=== PATIENT | female | born 1965 | race Caucasian/White ===

== ENCOUNTER 2017-01-27 11:09 | Inpatient (IN) | payer OTHER ==
[~2017-01-27] VITALS: Ht 167.6 cm; Wt 75.0 kg
[~2017-01-27 11:09] MED LIST: ALPR.5 PO; BUTACAP6; HYDR-3516 PO; TRAM50TA PO
[2017-01-27 11:10] VITALS: BP 126/81; PULSE 106; RESP 20; TEMP 99.8; O2SAT 96
--- NOTE | 2017-01-27 11:18 | PD ---
Physical Exam Time Seen by Provider: 11:17 Narrative 51 y/o female here c/o of nausea, h/a. Hx of meningitis in the past and she is concerned about a reoccurrence. Here with rash, fever currently but the h/a and nausea resolved. Vital signs reviewed. Seen at triage desk. Awaiting bed placement. Data Data Last Documented VS Vital Signs Date Time Temp Pulse Resp B/P (MAP) Pulse Ox O2 Delivery O2 Flow Rate FiO2 01/27/17 11:10 99.8 106 20 126/81 (96) 96 Room Air [facility] Medical Record Reviewed: Yes Supervised Visit with DANIELA: Melo Bundy Jan 27, 2017 11:18
[2017-01-27 11:38] VITALS: BP 122/78; PULSE 101; RESP 17; TEMP 99.5; O2SAT 98
[2017-01-27] MEDS ORDERED: cefTRIAXone INJ 2,000 MG in SODIUM CHLORIDE 0.9% INJ 100 ML IV STA (11:43)
[2017-01-27] MEDS ORDERED: ACETAMINOPHEN 325 MG TAB PO ONE (11:45)
--- NOTE | 2017-01-27 11:54 | PD ---
HPI . Headache and fever Chief Complaint: Fever Time Seen by Provider: 11:32 Travel History International Travel<30 days: No Contact w/Intl Traveler<30days: No Traveled to known affect area: No History of Present Illness HPI Patient presents with a chief complaint of headache and fever. Onset was 3 days ago. She is unable to tell me exactly what her temperature has been running at home. She has not actually checked it. She further reports a stiff neck, arthralgias and the onset of a petechial rash today. 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 She reports that she has been treated at an outside facility with hospitalization and IV antibiotics. She reports 6 out of 10 head pain which is exacerbated by flexion of her neck. PFSH Past Medical History Arthritis: Yes Autoimmune Disease: Yes (MOLLARETS MENINGITIS) Anxiety: Yes Diabetes: No Diminished Hearing: No Headaches: Yes Musculoskeletal: Yes (BULDGING DISC-CHRONIC BACK OAIN ) Migraines: Yes Tetanus Vaccination: < 5 Years Influenza Vaccination: No ?: Not LMP: NOW Dilation and Curettage (D&C): Yes Past Surgical History Other Surgery: Yes (THYROID TUMOR REMOVED ) Social History Alcohol Use: No Tobacco Use: No Substance Use: No Allergies-Medications (Allergen,Severity, Reaction): Coded Allergies: fire ant (Unverified Allergy, Unknown, 12/15/16) Reported Meds & Prescriptions Reported Meds & Active Scripts Active Reported Hydrocodone-Acetaminophen 5-325 mg Tab 1 Tab PO Q6H PRN Tramadol (Tramadol HCl) 50 Mg Tab 50 Mg PO Q6H PRN Rrvcyr-Zvwp-Tvclmuodhaw-Codein (Butalbit/Acetamin/Caff/Codeine) 1 Each Capsule Xanax (Alprazolam) 0.5 Mg Tab 0.5 Mg PO Q8H PRN Review of Systems Except as stated in HPI: all other systems reviewed are Neg General / Constitutional: Positive: Fever, Chills Eyes: No: Blurred Vision HENT: Positive: Headaches Cardiovascular: No: Chest Pain or Discomfort Respiratory: No: Cough, Shortness of Breath Gastrointestinal: Positive: Nausea, No: Vomiting, Diarrhea Genitourinary: No: Urgency, Frequency, Dysuria Musculoskeletal: Positive: Myalgias, Arthralgias Skin: Positive Rash Physical Exam Narrative GENERAL: Awake and alert and in no acute distress. SKIN: warm/dry. Diffuse blanching petechial rash. HEAD: Normocephalic. Atraumatic. EYES: Pupils equal and round. No scleral icterus. No injection or drainage. ENT: No nasal bleeding or discharge. Mucous membranes pink and moist. NECK: Trachea midline. She resists flexion CARDIOVASCULAR: Regular rate and rhythm. Heart sounds are normal. RESPIRATORY: No accessory muscle use. Clear to auscultation. Breath sounds equal bilaterally. GASTROINTESTINAL: Abdomen soft. Nontender. Bowel sounds present. Nondistended. MUSCULOSKELETAL: No obvious deformities. NEUROLOGICAL: Awake and alert. No obvious cranial nerve deficits. Motor grossly within normal limits. Normal speech. Negative Kernig's sign. PSYCHIATRIC: Appropriate mood and affect; insight and judgment normal. Data Data Last Documented VS Vital Signs Date Time Temp Pulse Resp B/P (MAP) Pulse Ox O2 Delivery O2 Flow Rate FiO2 01/27/17 11:38 99.5 101 17 122/78 (93) 98 01/27/17 11:38 Room Air Orders Orders Complete Blood Count With Diff (01/27/17 11:43) Comprehensive Metabolic Panel (01/27/17 11:43) Lactic Acid Sepsis Protocol (01/27/17 11:43) Magnesium (Mg) (01/27/17 11:43) Urinalysis - C+S If Indicated (01/27/17 11:43) Bacterial Antigen Csf (01/27/17 11:43) Csf Cell Count + Differential (01/27/17 11:43) Glucose, Csf (01/27/17 11:43) Total Protein, Csf (01/27/17 11:43) Csf Culture And Gram Stain (01/27/17 11:43) Influenzae A/B Antigen (01/27/17 11:43) Blood Culture (01/27/17 11:43) Chest, Single Ap (01/27/17 11:43) Blood Glucose (01/27/17 11:43) Ecg Monitoring (01/27/17 11:43) Iv Access Insert/Monitor (01/27/17 11:43) Oximetry (01/27/17 11:43) Acetaminophen (Tylenol) (01/27/17 11:45) Ceftriaxone Inj (Rocephin Inj) (01/27/17 11:43) Tray, Lumbar Punct 20x3.5 Ea (01/27/17 13:08) Urine Culture (01/27/17 12:45) Potassium Chloride (Kcl) (01/27/17 14:00) Propofol 200 Mg/20 Ml Inj (Diprivan 200 (01/27/17 13:45) Admit Order (Ed Use Only) (01/27/17 16:21) Labs Laboratory Tests Test 01/27/17 12:00 01/27/17 12:05 01/27/17 12:45 01/27/17 14:20 White Blood Count 8.3 TH/MM3 Red Blood Count 4.66 MIL/MM3 Hemoglobin 14.1 GM/DL Hematocrit 41.6 % Mean Corpuscular Volume 89.2 FL Mean Corpuscular Hemoglobin 30.2 PG Mean Corpuscular Hemoglobin Concent 33.8 % Red Cell Distribution Width 14.3 % Platelet Count 195 TH/MM3 Mean Platelet Volume 8.6 FL Neutrophils (%) (Auto) 84.6 % Lymphocytes (%) (Auto) 7.3 % Monocytes (%) (Auto) 7.8 % Eosinophils (%) (Auto) 0.0 % Basophils (%) (Auto) 0.3 % Neutrophils # (Auto) 7.1 TH/MM3 Lymphocytes # (Auto) 0.6 TH/MM3 Monocytes # (Auto) 0.6 TH/MM3 Eosinophils # (Auto) 0.0 TH/MM3 Basophils # (Auto) 0.0 TH/MM3 CBC Comment DIFF FINAL Differential Comment Blood Urea Nitrogen 15 MG/DL Creatinine 0.80 MG/DL Random Glucose 109 MG/DL Total Protein 7.4 GM/DL Albumin 3.2 GM/DL Calcium Level 8.9 MG/DL Magnesium Level 2.1 MG/DL Alkaline Phosphatase 57 U/L Aspartate Amino Transf (AST/SGOT) 43 U/L Alanine Aminotransferase (ALT/SGPT) 53 U/L Total Bilirubin 0.3 MG/DL Sodium Level 133 MEQ/L Potassium Level 2.8 MEQ/L Chloride Level 97 MEQ/L Carbon Dioxide Level 25.0 MEQ/L Anion Gap 11 MEQ/L Estimat Glomerular Filtration Rate 76 ML/MIN Lactic Acid Level 1.2 mmol/L Urine Color YELLOW Urine Turbidity CLEAR Urine pH 6.5 Urine Specific Hyrum 1.013 Urine Protein 30 mg/dL Urine Glucose (UA) NEG mg/dL Urine Ketones 10 mg/dL Urine Occult Blood MOD Urine Nitrite NEG Urine Bilirubin NEG Urine Urobilinogen LESS THAN 2.0 MG/DL Urine Leukocyte Esterase NEG Urine RBC 3 /hpf Urine WBC 1 /hpf Urine Squamous Epithelial Cells 2 /hpf Urine Transitional Epithelial Cells <1 /hpf Urine Bacteria RARE /hpf Urine Mucus FEW /lpf Microscopic Urinalysis Comment CATH-CULTURE IND CSF Volume (Tube 1) 1.0 ML CSF Supernatant Color (tube 1) CLEAR CSF Gross Blood (Tube 1) 4+ CSF Volume (Tube 2) 0.3 ML CSF Supernatant Color (tube 2) CLEAR CSF Gross Blood (Tube 2) 4+ CSF WBC (Tube 2) 8000 /MM3 CSF RBC (Tube 2) 549914 /MM3 CSF Volume (Tube 3) 0.5 ML CSF Supernatant Color (tube 3) CLEAR CSF Gross Blood (Tube 3) 4+ CSF Volume (Tube 4) 1.5 ML CSF Supernatant Color (tube 4) CLEAR CSF Gross Blood (Tube 4) 4+ CSF Neutrophils 80 % CSF Lymphocytes 16 % CSF Monocytes 4 % CSF Glucose 61 MG/DL CSF Total Protein 131.8 MG/DL MDM Medical Decision Making Medical Screen Exam Complete: Yes Emergency Medical Condition: Yes Medical Record Reviewed: Yes (unfortunately, she has not been seen at our facility for her previous episodes of meningitis.) Differential Diagnosis Differential diagnosis of headache includes but is not limited to migraine, muscle contraction headache, brain tumor, brain bleed Narrative Course Patient presents for headache and fever. Now has a petechial rash which is blanching. She needs to be ruled out for meningitis. CBC & BMP Diagram 01/27/17 12:00 Total Protein 7.4, Albumin 3.2 L, Calcium Level 8.9, Magnesium Level 2.1, Alkaline Phosphatase 57, Aspartate Amino Transf (AST/SGOT) 43 H, Alanine Aminotransferase (ALT/SGPT) 53, Total Bilirubin 0.3 UA is negative for infection. Lactic Acid level is 1.2. Flu screen is negative. Last Impressions Chest X-Ray 01/27/17 1143 Signed Impressions: Service Date/Time: Wednesday, January 27, 2017 12:26 - CONCLUSION: 1. No acute cardiopulmonary findings. Gael Guevara MD The chest x-ray was independently viewed by me. The patient has been empirically treated with Rocephin and vancomycin. CSF has 944,000 RBCs and 8000 WBCs with 80% neutrophils and 16% lymphocytes. glu 61 and pro 132. I have consulted Family Practice for admission. Procedures Procedure Narrative After the risks and benefits were discussed the following procedure was performed: MODERATE SEDATION: The patient was placed on a cafeteria monitor and pulse oximetry. An ambu bag and suction was immediately available at bedside. The patient was monitored by the nurse and respiratory therapy. Oxygen saturation, capnography, heart rate and blood pressure were monitored. Procedural sedation was achieved using Propofol. The patient was observed until awake and alert. Procedural Sedation time in attendance was 20 minutes. The LP was done by the PA while I was administering sedation. Sepsis Criteria SIRS Criteria (2 or more): Heart rate over [address]. Jaquez with [facility] will admit Diagnosis Primary Impression: Fever Qualified Codes: R50.9 - Fever, unspecified Additional Impressions: Headache Qualified Codes: R51 - Headache Meningitis Admitting Information Admitting Physician Requests: Admit Condition: Stable Vera Son MD Jan 27, 2017 11:54
[2017-01-27 12:39] LABS: AUTOMATED NEUTROPHIL # 7.1 TH/MM3 (1.8-7.7); BASOPHIL % 0.3 % (0.0-2.0); HEMATOCRIT 41.6 % (35.0-46.0); HEMO FLAGS DIFF FINAL; LYMPH % 7.3 % (9.0-44.0); LYMPHOCYTE # 0.6 TH/MM3 (1.0-4.8); MEAN CELL VOLUME 89.2 FL (80.0-100.0); MEAN CORPUSCULAR HEMOGLOBIN 30.2 PG (27.0-34.0); MEAN CORPUSCULAR HGB CONC 33.8 % (32.0-36.0); MONO % 7.8 % (0.0-8.0); NEUT % 84.6 % (16.0-70.0); PLATELET COUNT 195 TH/MM3 (150-450); RED BLOOD COUNT 4.66 MIL/MM3 (4.00-5.30); RED CELL DISTRIBUTION WIDTH 14.3 % (11.6-17.2); WHITE BLOOD COUNT 8.3 TH/MM3 (4.0-11.0)
[2017-01-27 13:21] LABS: ANION GAP 11 MEQ/L (5-15)
[2017-01-27 13:22] LABS: ALKALINE PHOSPHATASE 57 U/L (45-117); ALT (GPT) 53 U/L (10-53); AST (GOT) 43 U/L (15-37); CHLORIDE 97 MEQ/L (98-107); GLOMERULAR FILTRATION RATE 76 ML/MIN (>89); MAGNESIUM 2.1 MG/DL (1.5-2.5); POTASSIUM 2.8 MEQ/L (3.5-5.1); SODIUM (NA) 133 MEQ/L (136-145); TOTAL BILIRUBIN ADULT 0.3 MG/DL (0.2-1.0)
[2017-01-27 13:26] LABS: BLOOD UREA NITROGEN 15 MG/DL (7-18)
[2017-01-27 13:36] LABS: BACTERIA, URINE RARE /hpf; BLOOD, URINE MOD (NEG); GLUCOSE,URINE NEG (NEG); KETONE, URINE 10 mg/dL (NEG); MUCUS URINE FEW /lpf (OCC); NITRITE,URINE NEG (NEG); PH, URINE 6.5 (5.0-8.5); SQUAMOUS EPITHELIAL CELL URINE 2 /hpf (0-5); TRANSITIONAL EPI CELLS, URINE <1 /hpf; URINE COLOR YELLOW (YELLW/STRAW)
[2017-01-27 13:38] LABS: COMMENT (UR) CATH-CULTURE IND; CULTURE IF INDICATED CATH CULTURE IND
[2017-01-27] MEDS ORDERED: PROPOFOL 200 MG/20 ML AMP IV ONE (13:45)
--- NOTE | 2017-01-27 13:47 | RADRPT ---
EXAM DATE/TIME: 01/27/2017 12:26 [place] COMPARISON: No previous studies available for comparison. INDICATIONS : Weakness, rash, joint pain, fevers. MEDICAL HISTORY : Meningitis SURGICAL HISTORY : None. ENCOUNTER: Initial ACUITY: 1 day PAIN SCORE: 9/10 LOCATION: Bilateral chest FINDINGS: A single view of the chest demonstrates the lungs to be symmetrically aerated without evidence of mas s, infiltrate or effusion. The cardiomediastinal contours are unremarkable. Osseous structures are intact. CONCLUSION: 1. No acute cardiopulmonary findings. Gael Guevara MD on January 27, 2017 at 12:53 Board Certified Radiologist. This report was verified electronically.
--- NOTE | 2017-01-27 14:41 | PD ---
Physical Exam Date Seen by Provider: Jan 27, 2017 Time Seen by Provider: 14:15 [facility] department soft-tissue/musculoskeletal ultrasound was performed with patient consent. Linear probe was used in the transverse and sagittal views in the L4-L5 interspace of the spine and was without evidence of soft-tissue foreign bodies or abscess. The identifying landmarks were marked with a surgical pen for for the procedure. LUMBAR PUNCTURE: The patient was placed in the right lateral decubitus position in the position. The lumbar area of the back was prepped with Betadine and sterilely draped. The L3 -- L4 interspace was not infiltrated with lidocaine because she was given a conscious sedation. Number 18 gauge LP needle was placed in the interspace. Opening pressure deferred. Number 4 milliliters of bloody serous CSF were obtained indicating a likely traumatic tap. There were 4 attempts prior to successful lumbar puncture. Also see the sedation note from my attending physician. Patient tolerated procedure well. Data Data Last Documented VS Vital Signs Date Time Temp Pulse Resp B/P (MAP) Pulse Ox O2 Delivery O2 Flow Rate FiO2 01/27/17 11:38 99.5 101 17 122/78 (93) 98 01/27/17 11:38 Room Air Orders Orders Complete Blood Count With Diff (01/27/17 11:43) Comprehensive Metabolic Panel (01/27/17 11:43) Lactic Acid Sepsis Protocol (01/27/17 11:43) Magnesium (Mg) (01/27/17 11:43) Urinalysis - C+S If Indicated (01/27/17 11:43) Bacterial Antigen Csf (01/27/17 11:43) Csf Cell Count + Differential (01/27/17 11:43) Glucose, Csf (01/27/17 11:43) Total Protein, Csf (01/27/17 11:43) Csf Culture And Gram Stain (01/27/17 11:43) Influenzae A/B Antigen (01/27/17 11:43) Blood Culture (01/27/17 11:43) Chest, Single Ap (01/27/17 11:43) Blood Glucose (01/27/17 11:43) Ecg Monitoring (01/27/17 11:43) Iv Access Insert/Monitor (01/27/17 11:43) Oximetry (01/27/17 11:43) Acetaminophen (Tylenol) (01/27/17 11:45) Ceftriaxone Inj (Rocephin Inj) (01/27/17 11:43) Tray, Lumbar Punct 20x3.5 Ea (01/27/17 13:08) Urine Culture (01/27/17 12:45) Potassium Chloride (Kcl) (01/27/17 14:00) Propofol 200 Mg/20 Ml Inj (Diprivan 200 (01/27/17 13:45) Labs Laboratory Tests Test 01/27/17 12:00 01/27/17 12:05 01/27/17 12:45 01/27/17 14:20 White Blood Count 8.3 TH/MM3 Red Blood Count 4.66 MIL/MM3 Hemoglobin 14.1 GM/DL Hematocrit 41.6 % Mean Corpuscular Volume 89.2 FL Mean Corpuscular Hemoglobin 30.2 PG Mean Corpuscular Hemoglobin Concent 33.8 % Red Cell Distribution Width 14.3 % Platelet Count 195 TH/MM3 Mean Platelet Volume 8.6 FL Neutrophils (%) (Auto) 84.6 % Lymphocytes (%) (Auto) 7.3 % Monocytes (%) (Auto) 7.8 % Eosinophils (%) (Auto) 0.0 % Basophils (%) (Auto) 0.3 % Neutrophils # (Auto) 7.1 TH/MM3 Lymphocytes # (Auto) 0.6 TH/MM3 Monocytes # (Auto) 0.6 TH/MM3 Eosinophils # (Auto) 0.0 TH/MM3 Basophils # (Auto) 0.0 TH/MM3 CBC Comment DIFF FINAL Differential Comment Blood Urea Nitrogen 15 MG/DL Creatinine 0.80 MG/DL Random Glucose 109 MG/DL Total Protein 7.4 GM/DL Albumin 3.2 GM/DL Calcium Level 8.9 MG/DL Magnesium Level 2.1 MG/DL Alkaline Phosphatase 57 U/L Aspartate Amino Transf (AST/SGOT) 43 U/L Alanine Aminotransferase (ALT/SGPT) 53 U/L Total Bilirubin 0.3 MG/DL Sodium Level 133 MEQ/L Potassium Level 2.8 MEQ/L Chloride Level 97 MEQ/L Carbon Dioxide Level 25.0 MEQ/L Anion Gap 11 MEQ/L Estimat Glomerular Filtration Rate 76 ML/MIN Lactic Acid Level 1.2 mmol/L Urine Color YELLOW Urine Turbidity CLEAR Urine pH 6.5 Urine Specific Benedict 1.013 Urine Protein 30 mg/dL Urine Glucose (UA) NEG mg/dL Urine Ketones 10 mg/dL Urine Occult Blood MOD Urine Nitrite NEG Urine Bilirubin NEG Urine Urobilinogen LESS THAN 2.0 MG/DL Urine Leukocyte Esterase NEG Urine RBC 3 /hpf Urine WBC 1 /hpf Urine Squamous Epithelial Cells 2 /hpf Urine Transitional Epithelial Cells <1 /hpf Urine Bacteria RARE /hpf Urine Mucus FEW /lpf Microscopic Urinalysis Comment CATH-CULTURE IND MDM Supervised Visit with DANIELA: Yes Debby Foreman Jan 27, 2017 14:41
[2017-01-27 15:18] LABS: CSF LYMPHOCYTES 16 %; CSF MONOCYTES 4 %; CSF NEUTROPHILS 80 %; GROSS BLOOD TUBE #1 4+ (0); GROSS BLOOD TUBE #2 4+ (0); SUPERNATE COLOR TUBE #1 CLEAR (CLEAR); SUPERNATE COLOR TUBE #2 CLEAR (CLEAR); VOLUME TUBE # 2 0.3 ML; WBC TUBE #2 8000 /MM3 (0-10)
[2017-01-27 15:19] LABS: GROSS BLOOD TUBE #3 4+ (0); GROSS BLOOD TUBE #4 4+ (0); SUPERNATE COLOR TUBE #3 CLEAR (CLEAR); SUPERNATE COLOR TUBE #4 CLEAR (CLEAR); VOLUME TUBE # 3 0.5 ML; VOLUME TUBE # 4 1.5 ML
[2017-01-27 16:00] VITALS: BP 136/81; PULSE 103; RESP 18; O2SAT 97
[2017-01-27] MEDS: POTASSIUM CHLORIDE 20 MEQ CONTROLLED RELEASE TAB PO SCH ×9 (16:00→22:17)
--- NOTE | 2017-01-27 17:08 | HHI.HP ---
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 Currently endorses all of these symptoms which have not gotten better. The neck pain radiates into her shoulders down her back. Notes she is currently confused and "cannot add things up" right now. States she is having difficulty turning her head due to exquisite pain. She stated that she has had 7 cases of meningitis in the past, this is similar to but not exactly like the past cases she's had due to lack of headache. No headache, change in vision, photophobia, change in gait, change in balance, nausea, vomiting. She also notes a rash on her palms, abdomen, legs which has been present for a week or more. The rash is not itchy and described as red bumps, only 1 bump is painful which is located on the interphalangeal webbing between her thumb and pointer finger. No report of foot drop. (Rohan Wells MD R1) Review of Systems Constitutional: COMPLAINS OF: Fatigue, Fever, Chills, DENIES: Dizziness Endocrine: DENIES: Polydipsia, Polyuria Eyes: DENIES: Blurred vision, Diplopia, Eye pain, Vision loss, Photosensitivity Ears, nose, mouth, throat: DENIES: Tinnitus, Hearing loss, Vertigo, Running Nose, Odynophagia Respiratory: DENIES: Apneas, Cough, Snoring, Wheezing, Shortness of breath Cardiovascular: DENIES: Chest pain, Palpitations, Syncope Gastrointestinal: DENIES: Abdominal pain, Black stools, Bloody stools, Constipation, Diarrhea, Nausea, Vomiting Genitourinary: DENIES: Dysuria, Nocturia Musculoskeletal: COMPLAINS OF: Joint pain, Muscle aches, DENIES: Stiffness Integumentary: COMPLAINS OF: Abnormal pigmentation, Rash, DENIES: Pruritus Hematologic/lymphatic: DENIES: Bruising, Lymphadenopathy Immunologic/allergic: DENIES: Eczema, Urticaria Neurologic: DENIES: Abnormal gait, Headache, Localized weakness, Seizures Psychiatric: COMPLAINS OF: Anxiety, Confusion, DENIES: Mood changes (Rohan Wells MD R1) Past Family Social History Past Medical History Mollarets meningitis, 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, 7 previous cases of meningitis, 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 Anxiety Buldging disk, back pain Chronic headache Past Surgical History Thyroidectomy D&C (Rohan Wells MD R1) Allergies: Coded Allergies: fire ant (Unverified Allergy, Unknown, 12/15/16) Family History Mother (69), breast and lung CA Father living HTN 3 sisters healthy Social History Alcohol: occasional Tobacco: Never Drugs: none (Rohan Wells MD R1) Physical Exam Vital Signs Vital Signs Date Time Temp Pulse Resp B/P (MAP) Pulse Ox O2 Delivery O2 Flow Rate FiO2 01/27/17 16:00 103 18 136/81 (99) 97 01/27/17 11:38 99.5 101 17 122/78 (93) 98 01/27/17 11:38 98 Room Air 01/27/17 11:10 99.8 106 20 126/81 (96) 96 Room Air Physical Exam GENERAL: This is a well-nourished, well-developed patient, laying in bed, uncomfortably. SKIN: No ecchymoses. Cool and dry. Nontender, papular rash on palmar surface of hands, abdomen, bilateral legs. Non visualized directly on labia, but noted on proximal legs. HEAD: Atraumatic. Normocephalic. No temporal or scalp tenderness. EYES: Pupils equal round and reactive. Extraocular motions intact. No scleral icterus. No injection or drainage. ENT: Nose without bleeding, purulent drainage or septal hematoma. Throat without erythema, tonsillar hypertrophy or exudate. Uvula midline. Airway patent. NECK: Trachea midline. No JVD or lymphadenopathy. Tender to palpation along left paraspinal c-spine. Refuses to move neck. Brudzinski's sign not attempted due to exquisite neck tenderness. Difficult to examine back due to patients opposition to turning or moving. CARDIOVASCULAR: Regular rate and rhythm without gallops, or rubs. Systolic murmur. RESPIRATORY: Clear to auscultation. Breath sounds equal bilaterally. No wheezes , rales, or rhonchi. GASTROINTESTINAL: Abdomen soft, non-tender, nondistended. No hepato-splenomegaly , or palpable masses. No guarding. MUSCULOSKELETAL: Extremities without clubbing, cyanosis, or edema. No joint tenderness, effusion, or edema noted. No calf tenderness. Negative Kernig's sign. NEUROLOGICAL: Awake and alert. Cranial nerves II through XII intact. Motor and sensory grossly within normal limits. Five out of 5 muscle strength in all muscle groups. Normal speech. Laboratory Laboratory Tests Test 01/27/17 12:00 01/27/17 12:05 01/27/17 12:45 01/27/17 14:20 White Blood Count 8.3 Red Blood Count 4.66 Hemoglobin 14.1 Hematocrit 41.6 Mean Corpuscular Volume 89.2 Mean Corpuscular Hemoglobin 30.2 Mean Corpuscular Hemoglobin Concent 33.8 Red Cell Distribution Width 14.3 Platelet Count 195 Mean Platelet Volume 8.6 Neutrophils (%) (Auto) 84.6 Lymphocytes (%) (Auto) 7.3 Monocytes (%) (Auto) 7.8 Eosinophils (%) (Auto) 0.0 Basophils (%) (Auto) 0.3 Neutrophils # (Auto) 7.1 Lymphocytes # (Auto) 0.6 Monocytes # (Auto) 0.6 Eosinophils # (Auto) 0.0 Basophils # (Auto) 0.0 CBC Comment DIFF FINAL Differential Comment Blood Urea Nitrogen 15 Creatinine 0.80 Random Glucose 109 Total Protein 7.4 Albumin 3.2 Calcium Level 8.9 Magnesium Level 2.1 Alkaline Phosphatase 57 Aspartate Amino Transf (AST/SGOT) 43 Alanine Aminotransferase (ALT/SGPT) 53 Total Bilirubin 0.3 Sodium Level 133 Potassium Level 2.8 Chloride Level 97 Carbon Dioxide Level 25.0 Anion Gap 11 Estimat Glomerular Filtration Rate 76 Lactic Acid Level 1.2 Urine Color YELLOW Urine Turbidity CLEAR Urine pH 6.5 Urine Specific [place] 1.013 Urine Protein 30 Urine Glucose (UA) NEG Urine Ketones 10 Urine Occult Blood MOD Urine Nitrite NEG Urine Bilirubin NEG Urine Urobilinogen LESS THAN 2.0 Urine Leukocyte Esterase NEG Urine RBC 3 Urine WBC 1 Urine Squamous Epithelial Cells 2 Urine Transitional Epithelial Cells <1 Urine Bacteria RARE Urine Mucus FEW Microscopic Urinalysis Comment CATH-CULTURE IND CSF Volume (Tube 1) 1.0 CSF Supernatant Color (tube 1) CLEAR CSF Gross Blood (Tube 1) 4+ CSF Volume (Tube 2) 0.3 CSF Supernatant Color (tube 2) CLEAR CSF Gross Blood (Tube 2) 4+ CSF WBC (Tube 2) 8000 CSF RBC (Tube 2) [id number] CSF Volume (Tube 3) 0.5 CSF Supernatant Color (tube 3) CLEAR CSF Gross Blood (Tube 3) 4+ CSF Volume (Tube 4) 1.5 CSF Supernatant Color (tube 4) CLEAR CSF Gross Blood (Tube 4) 4+ CSF Neutrophils 80 CSF Lymphocytes 16 CSF Monocytes 4 CSF Glucose 61 CSF Total Protein 131.8 Date/Time Source Procedure Growth Status 01/27/17 12:05 Blood Peripheral Aerobic Blood Culture Pending Received 01/27/17 12:05 Blood Peripheral Anaerobic Blood Culture Pending Received 01/27/17 14:20 Cerebral Spinal Fluid Lumbar Puncture Gram Stain - Final Resulted 01/27/17 14:20 Cerebral Spinal Fluid Lumbar Puncture CSF Culture Pending Resulted 01/27/17 12:08 Nasal Washing Influenza Types A,B Antigen (DILMA) - Final NEGATIVE FOR FLU A AND B ANTIGEN.... Complete 01/27/17 12:45 Urine Catheterized Urine Urine Culture Pending Received (Rohan Wells MD R1) Result Diagram: 01/27/17 1200 01/27/17 1200 Caprini VTE Risk Assessment Caprini VTE Risk Assessment: No/Low Risk (score <= 1) Caprini Risk Assessment Model Point Value = 1 Point Value = 2 Point Value = 3 Point Value = 5 Age 41-60 Minor surgery BMI > 25 kg/m2 Swollen legs Varicose veins or History of unexplained or recurrent spontaneous Oral contraceptives or hormone replacement Sepsis (< 1 month) Serious lung disease, including pneumonia (< 1 month) Abnormal pulmonary function Acute myocardial infarction Congestive heart failure (< 1 month) History of inflammatory bowel disease Medical patient at bed rest Age 61-74 Arthroscopic surgery Major open surgery (> 45 min) Laparoscopic surgery (> 45 min) Malignancy Confined to bed (> 72 hours) Immobilizing plaster cast Central venous access Age >= 75 History of VTE Family history of VTE Factor V Leiden Prothrombin [id number] Lupus anticoagulant Anticardiolipin antibodies Elevated serum homocysteine Heparin-induced thrombocytopenia Other congenital or acquired thrombophilia Stroke (< 1 month) Elective arthroplasty Hip, pelvis, or leg fracture Acute spinal cord injury (< 1 month) Prophylaxis Regimen Total Risk Factor Score Risk Level Prophylaxis Regimen 0-1 Low Early ambulation 2 Moderate Order ONE of the following: *Sequential Compression Device (SCD) *Heparin 5000 units SQ BID 3-4 Higher Order ONE of the following medications: *Heparin 5000 units SQ TID *Enoxaparin/Lovenox 40 mg SQ daily (WT < 150 kg, CrCl > 30 mL/min) *Enoxaparin/Lovenox 30 mg SQ daily (WT < 150 kg, CrCl > 10-29 mL/min) *Enoxaparin/Lovenox 30 mg SQ BID (WT < 150 kg, CrCl > 30 mL/min) AND/OR *Sequential Compression Device (SCD) 5 or more Highest Order ONE of the following medications: *Heparin 5000 units SQ TID (Preferred with Epidurals) *Enoxaparin/Lovenox 40 mg SQ daily (WT < 150 kg, CrCl > 30 mL/min) *Enoxaparin/Lovenox 30 mg SQ daily (WT < 150 kg, CrCl > 10-29 mL/min) *Enoxaparin/Lovenox 30 mg SQ BID (WT < 150 kg, CrCl > 30 mL/min) AND *Sequential Compression Device (SCD) (Rohan Wells MD R1) Assessment and Plan Assessment and Plan 51-year-old female with history of Mollarets meningitis, 7 past episodes meningitis, who presented with meningeal symptoms. Lumbar puncture performed in ED elevated WBC at 8000, however highly traumatic tap with almost 1,000,000 RBC present. (Rohan Wells MD R1) Attending Attestation The patient has been seen and examined. The chart and all resident notes have been reviewed. I agree that inpatient care is appropriate and that a two midnight stay is expected for the reasons documented in the resident history and physical. I have discussed this with the resident and certify the resident s order for inpatient admission. (Vera Stallworth MD) Problem List: (1) Meningitis ICD Codes: G03.9 - Meningitis, unspecified Status: Acute Plan: History of Mollarets meningitis. Meningeal signs present. 8000 WBCs in traumatic tap. Possible bacterial versus viral meningitis * Vancomycin and Rocephin (01/27-) * Follow up CSF HSV 1/2 PCR * Follow up blood culture * Follow-up CRP * Follow-up MRI (2) Rash ICD Codes: R21 - Rash and other nonspecific skin eruption Plan: Nontender and non-pruritic papular rash extending over body including palms. * Follow-up RPR * Follow-up GC chlamydia * Follow-up ESR, CRP (3) Hypokalemia ICD Codes: E87.6 - Hypokalemia Plan: Potassium 2.8 in ED on day of admission * 40 mEq given in the ED * Continue to monitor and correct as needed (4) FEN Plan: Fluids * By mouth as tolerated Electrolytes * Hypokalemic, given potassium supplementation * Monitor and correct as needed Nutrition * Regular diet Prophylaxis * Mechanical prophylaxis * Chemical prophylaxis currently contraindicated due to multiple recent lumbar puncture attempts (Rohan Wells MD R1) Physician Certification 2 Midnight Certification Type: Admission for Inpatient Services Order for Inpatient Services The services are ordered in accordance with Medicare regulations or non- Medicare payer requirements, as applicable. In the case of services not specified as inpatient-only, they are appropriately provided as inpatient services in accordance with the 2-midnight benchmark. Estimated LOS (days): 3 3 days is the estimated time the patient will need to remain in the hospital, assuming treatment plan goals are met and no additional complications. Post-Hospital Plan: Home (Rohan Wells MD R1) Rohan Wells MD R1 Jan 27, 2017 17:08 Vera Stallworth MD Jan 28, 2017 12:32
[2017-01-27] MEDS ORDERED: BISACODYL 10 MG SUPP RECTAL PRN (17:45)
[2017-01-27] MEDS ORDERED: ONDANSETRON HCL 4 MG/2 ML VIAL IVP PRN (17:45)
[2017-01-27] MEDS ORDERED: MAGNESIUM HYDROXIDE SUSP 30 ML CUP PO PRN (17:45)
[2017-01-27] MEDS ORDERED: SODIUM CHLORIDE 0.9% FLUSH 10 ML FLUSH IV FLUSH PRN (17:45)
[2017-01-27] MEDS ORDERED: Vancomycin Consult Pharmacy 1 EA OTHER SCH (17:45)
[2017-01-27] MEDS ORDERED: ACETAMINOPHEN 325 MG TAB PO PRN ×2 (17:45→18:45)
[2017-01-27] MEDS ORDERED: LACTULOSE SYRUP 20 GM/30 ML CUP PO PRN (17:45)
[2017-01-27] MEDS ORDERED: NALOXONE HCL 0.4 MG/ML AMP IV PUSH PRN ×2 (17:45→18:45)
[2017-01-27] MEDS ORDERED: SENNOSIDES 8.6 MG TAB PO PRN (17:45)
[2017-01-27] MEDS ORDERED: VANCOMYCIN INJ 1,000 MG in SODIUM CHLOR 0.9% 250 ML INJ 250 ML IV SCH (17:45)
[2017-01-27] MEDS ORDERED: VANCOMYCIN 1,500 MG/NS 500 ML IV ONE ×2 (18:00)
[2017-01-27 18:45] VITALS: BP 135/69
[2017-01-27] MEDS ORDERED: MORPHINE SULFATE 4 MG/ML INJ IV PUSH PRN ×3 (18:45→20:15)
[2017-01-27 20:00] VITALS: BP 128/79; PULSE 101; RESP 18; TEMP 99.7; O2SAT 98
[2017-01-27] MEDS: VANCOMYCIN 1,000 MG/NS 250 ML IV SCH ×2 (20:18)
[2017-01-27] MEDS: DOCUSATE SODIUM 50 MG/SENNA 8.6 MG TAB PO SCH (20:18)
[2017-01-27] MEDS: SODIUM CHLOR 0.9% 1000 ML INJ 1,000 ML IV SCH (20:18)
[2017-01-27] MEDS: SODIUM CHLORIDE 0.9% FLUSH 10 ML FLUSH IV FLUSH SCH (20:19)
[2017-01-27 20:40] LABS: CHLAMYDIA PCR NOT DETECTED (NOT DETECT); NEISSERIA PCR NOT DETECTED (NOT DETECT)
[2017-01-27] MEDS: cefTRIAXone INJ 2,000 MG in SODIUM CHLORIDE 0.9% INJ 100 ML IV SCH (23:33)
[2017-01-27] MEDS: MORPHINE SULFATE 4 MG/ML INJ IV PUSH PRN (23:37)
[2017-01-27 23:54] VITALS: BP 107/65; PULSE 100; RESP 18; TEMP 102.2; O2SAT 96
[2017-01-28] MEDS: DEXAMETHASONE SOD PHOS 20 MG/5 ML VIAL IV PUSH SCH ×5 (00:24→23:49)
[2017-01-28] MEDS: POTASSIUM CHLORIDE 20 MEQ CONTROLLED RELEASE TAB PO SCH ×7 (01:00→08:58)
[2017-01-28 01:41] LABS: BETA HCG QUANT LESS THAN 1 MIU/ML (0-5)
[2017-01-28 02:36] LABS: AUTOMATED NEUTROPHIL # 7.4 TH/MM3 (1.8-7.7); BASOPHIL % 0.3 % (0.0-2.0); HEMATOCRIT 37.9 % (35.0-46.0); HEMO FLAGS DIFF FINAL; LYMPH % 5.5 % (9.0-44.0); LYMPHOCYTE # 0.5 TH/MM3 (1.0-4.8); MEAN CELL VOLUME 89.2 FL (80.0-100.0); MEAN CORPUSCULAR HEMOGLOBIN 30.1 PG (27.0-34.0); MEAN CORPUSCULAR HGB CONC 33.7 % (32.0-36.0); MONO % 6.9 % (0.0-8.0); NEUT % 87.3 % (16.0-70.0); PLATELET COUNT 195 TH/MM3 (150-450); RED BLOOD COUNT 4.25 MIL/MM3 (4.00-5.30); RED CELL DISTRIBUTION WIDTH 14.1 % (11.6-17.2); WHITE BLOOD COUNT 8.5 TH/MM3 (4.0-11.0)
[2017-01-28 03:04] LABS: ALKALINE PHOSPHATASE 48 U/L (45-117); ALT (GPT) 36 U/L (10-53); ANION GAP 7 MEQ/L (5-15); AST (GOT) 29 U/L (15-37); BICARBONATE 26.4 MEQ/L (21.0-32.0); BLOOD UREA NITROGEN 11 MG/DL (7-18); CHLORIDE 102 MEQ/L (98-107); GLOMERULAR FILTRATION RATE 77 ML/MIN (>89); POTASSIUM 3.3 MEQ/L (3.5-5.1); SODIUM (NA) 135 MEQ/L (136-145); TOTAL BILIRUBIN ADULT 0.3 MG/DL (0.2-1.0)
[2017-01-28] MEDS: SODIUM CHLOR 0.9% 1000 ML INJ 1,000 ML IV SCH ×3 (03:32→17:59)
[2017-01-28 04:00] VITALS: BP 108/58; PULSE 74; RESP 16; TEMP 97.2; O2SAT 98
[2017-01-28] MEDS: MORPHINE SULFATE 4 MG/ML INJ IV PUSH PRN ×2 (05:17→08:58)
[2017-01-28] MEDS ORDERED: POTASSIUM CHLORIDE 10 MEQ CONTROLLED RELEASE TAB PO ONE (07:00)
--- NOTE | 2017-01-28 07:34 | EKG ---
Date Performed: 01/27/2017 Time Performed: 21:09:08 PTAGE: 51 years EKG: SINUS TACHYCARDIA NONSPECIFIC T-WAVE ABNORMALITY ABNORMAL RHYTHM ECG DOCTOR: Janelle Stewart Interpretating Date/Time 01/28/2017 07:33:38
[2017-01-28 08:00] VITALS: BP 112/68; PULSE 73; RESP 20; TEMP 97.4; O2SAT 95
[2017-01-28] MEDS: VANCOMYCIN 1,000 MG/NS 250 ML IV SCH ×2 (08:57)
[2017-01-28] MEDS: SODIUM CHLORIDE 0.9% FLUSH 10 ML FLUSH IV FLUSH SCH ×2 (08:58→21:00)
[2017-01-28] MEDS: DOCUSATE SODIUM 50 MG/SENNA 8.6 MG TAB PO SCH ×2 (08:58→21:00)
[2017-01-28] MEDS ORDERED: ACETAMINOPHEN/HYDROcodone 325 MG/5 MG TAB PO PRN (09:30)
[2017-01-28] MEDS ORDERED: MORPHINE SULFATE 4 MG/ML INJ IV PUSH PRN (09:30)
--- NOTE | 2017-01-28 09:45 | PD.CONS ---
History of Present Illness Service Infectious disease Consult Requested By Dr Stallworth Reason for Consult Evaluate patient for possible viral meningitis Primary Care Physician Unknown Diagnoses: History of Present Illness Patient seen and examined. Records reviewed. Patient is a 51-year-old female, presented to the hospital complaining all 4 day history of fevers. Patient was also having significant malaise, and diffuse body aches. Initially she had pain on the left side of her body which was constant. It gets worse when she moves. Subsequently it became generalized. She has had some neck pain. She also has experienced some chest discomfort when she takes a deep breath. She has not had any respiratory complaint, no sore throat, no cough or congestion or shortness of breath. Denies any headaches, or any photophobia. There is been no ear pain nasal discharge. She also has not had any nausea or vomiting or any GI complaints. Denies any urinary complaints. About one day prior to admission she noted a rash on her palms. Over the next day the rash started progressing and became generalized. Some of the rash on her palms are painful. Patient has 6 other people in her home. None of them have been sick. The youngest kids are teenagers. They have a lot of animals in her house including dogs cats parrots and rodents. 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 She has not had any recent travel. Patient has been for 12 years; denies any vaginal discharge. Since admission she has been febrile. Her WBC is normal. Sedimentation rate is 42, and C-reactive protein 15. GC and Chlamydia negative. Chest x-ray is normal. Patient had a spinal tap, and it was traumatic. Patient gives a history of episodes of meningitis 7. She was diagnosed to have Mollarets meningitis. Her last episode of meningitis was about 4 years ago. Patient currently is on vancomycin and Rocephin. Infectious disease consultation has been requested to evaluate for possible viral meningitis. Review of Systems Constitutional: COMPLAINS OF: Fever, Chills Eyes: DENIES: Eye pain Ears, nose, mouth, throat: DENIES: Nasal discharge, Oral lesions, Throat pain, Ear Pain, Sinus Pain Respiratory: DENIES: Cough, Sputum production, Shortness of breath Cardiovascular: COMPLAINS OF: Chest pain, DENIES: Palpitations, Syncope Gastrointestinal: DENIES: Abdominal pain, Diarrhea, Nausea, Vomiting, Difficulty Swallowing Genitourinary: DENIES: Urinary frequency, Urgency, Dysuria Musculoskeletal: COMPLAINS OF: Joint pain, Muscle aches, Back pain, Neck pain, DENIES: Joint Swelling Integumentary: COMPLAINS OF: Rash, DENIES: Pruritus, Nipple discharge Neurologic: DENIES: Headache, Localized weakness Psychiatric: DENIES: Confusion, Hallucinations Past Family Social History Allergies: Coded Allergies: fire ant (Unverified Allergy, Unknown, 12/15/16) Past Medical History Mollarets meningitis, 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, 7 previous cases of meningitis, 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 Anxiety Bulging disk, back pain Chronic headache One miscarriage, and miscarriage, required D&C Past Surgical History Thyroidectomy, for non-malignant nodule D&C Reported Medications Reported Meds & Active Scripts Active Reported Hydrocodone-Acetaminophen 5-325 mg Tab 1 Tab PO Q6H PRN Tramadol (Tramadol HCl) 50 Mg Tab 50 Mg PO Q6H PRN Kjtxhs-Blcw-Mfcoverdqqh-Codein (Butalbit/Acetamin/Caff/Codeine) 1 Each Capsule Xanax (Alprazolam) 0.5 Mg Tab 0.5 Mg PO Q8H PRN Active Ordered Medications Tylenol Dulcolax Rocephin Decadron Lactulose MOM Morphine Zofran Potassium Radha-Colace Senokot Vancomycin Family History Mother (69), breast and lung CA Father living HTN 3 sisters healthy Social History 12 years Alcohol: occasional Tobacco: Never Drugs: none Physical Exam Vital Signs Vital Signs Date Time Temp Pulse Resp B/P (MAP) Pulse Ox O2 Delivery O2 Flow Rate FiO2 01/28/17 08:00 97.4 73 20 112/68 (83) 95 01/28/17 04:00 Room Air 01/28/17 04:00 97.2 74 16 108/58 (75) 98 01/28/17 00:00 Room Air 01/27/17 23:54 102.2 100 18 107/65 (79) 96 01/27/17 20:00 Room Air 01/27/17 20:00 99.7 101 18 128/79 (95) 98 01/27/17 18:45 102 20 135/69 (91) 97 01/27/17 16:00 103 18 136/81 (99) 97 01/27/17 11:38 99.5 101 17 122/78 (93) 98 01/27/17 11:38 98 Room Air 01/27/17 11:10 99.8 106 20 126/81 (96) 96 Room Air Physical Exam GENERAL: Patient is a well-nourished, well-developed CF, awake and alert, not in respiratory distress. She does not look toxic appearing. SKIN: Warm and dry. She has papular, palpable, blanching pink rash in her whole body, and in both palms, none in soles of feet. There are 2 lesions in her R palm that looks somewhat pustula. No ecchymoses and no evidence of embolic lesions. HEAD: Atraumatic. Normocephalic. No temporal wasting, or tenderness. EYES: Penelope conjunctiva. No petechia or hemorrhage. Pupils equal, round and reactive to light. Extraocular movements full and intact. No scleral icterus. No injection or drainage. EARS, NOSE AND THROAT: Nose without bleeding or purulent nasal discharge. No sinus tenderness. Mucous membranes pink and moist. No oral lesions noted. No exudate. No oral thrush. NECK: Trachea midline. Supple and not tender, no meningeal signs. No nuchal rigidity. CARDIOVASCULAR: Regular rate and rhythm. No murmurs, rubs or gallops heard RESPIRATORY: Clear to auscultation. Breath sounds equal bilaterally. No rales , wheezing or rhonchi ABDOMEN: Soft, non-tender, nondistended. Bowel sounds present and normoactive. No guarding. No rebound. No organomegaly. EXTREMITIES: No clubbing, cyanosis, or edema.No joint effusion, has good ROM. No calf tenderness. Well perfused and warm. BACK: No tenderness in the spine NEUROLOGICAL: Awake and alert. Cranial nerves grossly intact. Motor grossly within normal limits. PSYCHIATRIC: Normal affect, calm and cooperative. LINE: No evidence of infection Laboratory Laboratory Tests Test 01/27/17 12:00 01/27/17 12:05 01/27/17 12:45 01/27/17 14:20 White Blood Count 8.3 Red Blood Count 4.66 Hemoglobin 14.1 Hematocrit 41.6 Mean Corpuscular Volume 89.2 Mean Corpuscular Hemoglobin 30.2 Mean Corpuscular Hemoglobin Concent 33.8 Red Cell Distribution Width 14.3 Platelet Count 195 Mean Platelet Volume 8.6 Neutrophils (%) (Auto) 84.6 Lymphocytes (%) (Auto) 7.3 Monocytes (%) (Auto) 7.8 Eosinophils (%) (Auto) 0.0 Basophils (%) (Auto) 0.3 Neutrophils # (Auto) 7.1 Lymphocytes # (Auto) 0.6 Monocytes # (Auto) 0.6 Eosinophils # (Auto) 0.0 Basophils # (Auto) 0.0 CBC Comment DIFF FINAL Differential Comment Erythrocyte Sedimentation Rate 42 Blood Urea Nitrogen 15 Creatinine 0.80 Random Glucose 109 Total Protein 7.4 Albumin 3.2 Calcium Level 8.9 Magnesium Level 2.1 Alkaline Phosphatase 57 Aspartate Amino Transf (AST/SGOT) 43 Alanine Aminotransferase (ALT/SGPT) 53 Total Bilirubin 0.3 Sodium Level 133 Potassium Level 2.8 Chloride Level 97 Carbon Dioxide Level 25.0 Anion Gap 11 Estimat Glomerular Filtration Rate 76 C-Reactive Protein 15.00 Lactic Acid Level 1.2 Urine Color YELLOW Urine Turbidity CLEAR Urine pH 6.5 Urine Specific [place] 1.013 Urine Protein 30 Urine Glucose (UA) NEG Urine Ketones 10 Urine Occult Blood MOD Urine Nitrite NEG Urine Bilirubin NEG Urine Urobilinogen LESS THAN 2.0 Urine Leukocyte Esterase NEG Urine RBC 3 Urine WBC 1 Urine Squamous Epithelial Cells 2 Urine Transitional Epithelial Cells <1 Urine Bacteria RARE Urine Mucus FEW Microscopic Urinalysis Comment CATH-CULTURE IND Chlamydia trachomatis DNA (PCR) NOT DETECTED Neisseria gonorrhoeae DNA (PCR) NOT DETECTED CSF Volume (Tube 1) 1.0 CSF Supernatant Color (tube 1) CLEAR CSF Gross Blood (Tube 1) 4+ CSF Volume (Tube 2) 0.3 CSF Supernatant Color (tube 2) CLEAR CSF Gross Blood (Tube 2) 4+ CSF WBC (Tube 2) 8000 CSF RBC (Tube 2) [id number] CSF Volume (Tube 3) 0.5 CSF Supernatant Color (tube 3) CLEAR CSF Gross Blood (Tube 3) 4+ CSF Volume (Tube 4) 1.5 CSF Supernatant Color (tube 4) CLEAR CSF Gross Blood (Tube 4) 4+ CSF Neutrophils 80 CSF Lymphocytes 16 CSF Monocytes 4 CSF Glucose 61 CSF Total Protein 131.8 Test 01/27/17 21:26 01/28/17 02:14 Human Chorionic Gonadotropin, Quant LESS THAN 1 White Blood Count 8.5 Red Blood Count 4.25 Hemoglobin 12.8 Hematocrit 37.9 Mean Corpuscular Volume 89.2 Mean Corpuscular Hemoglobin 30.1 Mean Corpuscular Hemoglobin Concent 33.7 Red Cell Distribution Width 14.1 Platelet Count 195 Mean Platelet Volume 8.4 Neutrophils (%) (Auto) 87.3 Lymphocytes (%) (Auto) 5.5 Monocytes (%) (Auto) 6.9 Eosinophils (%) (Auto) 0.0 Basophils (%) (Auto) 0.3 Neutrophils # (Auto) 7.4 Lymphocytes # (Auto) 0.5 Monocytes # (Auto) 0.6 Eosinophils # (Auto) 0.0 Basophils # (Auto) 0.0 CBC Comment DIFF FINAL Differential Comment Blood Urea Nitrogen 11 Creatinine 0.79 Random Glucose 169 Total Protein 6.8 Albumin 2.8 Calcium Level 7.9 Alkaline Phosphatase 48 Aspartate Amino Transf (AST/SGOT) 29 Alanine Aminotransferase (ALT/SGPT) 36 Total Bilirubin 0.3 Sodium Level 135 Potassium Level 3.3 Chloride Level 102 Carbon Dioxide Level 26.4 Anion Gap 7 Estimat Glomerular Filtration Rate 77 Date/Time Source Procedure Growth Status 01/27/17 12:05 Blood Peripheral Aerobic Blood Culture Pending Received 01/27/17 12:05 Blood Peripheral Anaerobic Blood Culture Pending Received 01/27/17 14:20 Cerebral Spinal Fluid Lumbar Puncture Gram Stain - Final Resulted 01/27/17 14:20 Cerebral Spinal Fluid Lumbar Puncture CSF Culture - Preliminary NO GROWTH IN 24 HOURS. Resulted 01/27/17 12:08 Nasal Washing Influenza Types A,B Antigen (DILMA) - Final NEGATIVE FOR FLU A AND B ANTIGEN.... Complete 01/27/17 12:45 Urine Catheterized Urine Urine Culture Pending Received Result Diagram: 01/28/174 01/28/17 0214 Imaging RADIOLOGY STUDIES/FILMS REVIEWED Chest X-Ray 01/27/17 1143 Signed Impressions: Service Date/Time: Friday, January 27, 2017 12:26 - CONCLUSION: 1. No acute cardiopulmonary findings. Gael Guevara MD Assessment and Plan Assessment and Plan IMPRESSION Febrile illness with rash, etiology likely a viral syndrome No clinical evidence of meningitis Previous episodes of meningitis, x 7, with Dx Mollarets meningitis RECOMMENDATION D/C isolation Stop vancomycin Continue Rocephin for now, decrease dose to once a day Follow C/S Monitor temps Monitor progress Will determine course of Rx once work-up completed, and depending on clinical course I will follow along with you Thank you for this consultation Discussed Condition With Explained plan to patient and Jessica Banda MD Jan 28, 2017 09:45
[2017-01-28 12:00] VITALS: BP 114/76; PULSE 89; RESP 20; TEMP 97.6; O2SAT 93
[2017-01-28] MEDS ORDERED: ACYCLOVIR INJ 700 MG in SODIUM CHLORIDE 0.9% INJ 100 ML IV SCH (12:00)
[2017-01-28] MEDS ORDERED: GADODIAMIDE PF 287 MG/ML 5 ML VIAL (for RAD MRI) IVCONTRAST ONE (12:17)
[2017-01-28] MEDS: ACETAMINOPHEN/HYDROcodone 325 MG/5 MG TAB PO PRN ×3 (13:12→21:58)
--- NOTE | 2017-01-28 13:49 | RADRPT ---
EXAM DATE/TIME: 01/28/2017 11:15 [place] COMPARISON: No previous studies available for comparison. INDICATIONS : Left hip pain. No injury. CONTRAST: 15 cc Omniscan (gadodiamide) IV MEDICAL HISTORY : Meningitis. SURGICAL HISTORY : Thyroidectomy. ENCOUNTER: Subsequent ACUITY: 4-6 days PAIN SCORE: 5/10 LOCATION: Left hip. TECHNIQUE: Multiplanar, multisequence MRI examination was performed without contrast and after the intravenous a dministration of gadolinium. FINDINGS: BONE/CARTILAGE: Bone marrow signal is homogeneous. Articular cartilage signal is within normal limits. LABRUM: Within normal limits. MUSCLES/TENDONS: Mild edema/enhancement adjacent to the distal gluteus medius tendon/muscle. All the other visualized tendons and muscles are within normal limits MISCELLANEOUS: Small left hip joint effusion. 3.1 x 3.0 cm left ovarian cyst. 3.7 cm exophytic left-sided uterine fi broid. POST-CONTRAST: There are no abnormal areas of enhancement on the post-contrast images. CONCLUSION: 1. Mild peritendinitis/strain of the distal gluteus medius on the left. 2. Small left hip joint effusion. 3. Left-sided uterine fibroid and left-sided ovarian cyst. Hiram Reed MD on January 28, 2017 at 13:42 Board Certified Radiologist. This report was verified electronically.
--- NOTE | 2017-01-28 14:05 | RADRPT ---
EXAM DATE/TIME: 01/28/2017 11:15 [facility] COMPARISON: No previous studies available for comparison. INDICATIONS : Meningitis. Fever. CONTRAST: 15 cc Omniscan (gadodiamide) IV MEDICAL HISTORY : Meningitis. SURGICAL HISTORY : Thyroidectomy. ENCOUNTER: Subsequent ACUITY: 4-6 days PAIN SCORE: 3/10 LOCATION: spine. TECHNIQUE: Multiplanar multisequence MRI of the thoracic spine was performed. FINDINGS: VERTEBRA: Enhancing 1.9 cm bone lesion in the T6 vertebral body has areas of high signal on precontrast T1 weig hted images indicating a hemangioma. Bone marrow signal otherwise homogeneous and within normal limit s. ALIGNMENT: Normal. CORD: Normal position and configuration. POST CONTRAST: No abnormal areas of contrast enhancement seen. T1-T2: Normal. T2-T3: The thecal sac has a normal diameter. No evidence of disc bulge or protrusion. T3-T4: The thecal sac has a normal diameter. No evidence of disc bulge or protrusion. T4-T5: The thecal sac has a normal diameter. No evidence of disc bulge or protrusion. T5-T6: The thecal sac has a normal diameter. No evidence of disc bulge or protrusion. T6-T7: The thecal sac has a normal diameter. No evidence of disc bulge or protrusion. T7-T8: The thecal sac has a normal diameter. No evidence of disc bulge or protrusion. T8-T9: The thecal sac has a normal diameter. No evidence of disc bulge or protrusion. T9-T10: The thecal sac has a normal diameter. No evidence of disc bulge or protrusion. T10-T11: The thecal sac has a normal diameter. No evidence of disc bulge or protrusion. T11-T12: The thecal sac has a normal diameter. No evidence of disc bulge or protrusion. T12-L1: The thecal sac has a normal diameter. No evidence of disc bulge or protrusion. CONCLUSION: No acute findings in the thoracic spine. Hiram Reed MD on January 28, 2017 at 14:01 Board Certified Radiologist. This report was verified electronically.
--- NOTE | 2017-01-28 14:08 | RADRPT ---
EXAM DATE/TIME: 01/28/2017 11:15 [facility] COMPARISON: No previous studies available for comparison. INDICATIONS : Meningitis. Fever. CONTRAST: 15 cc Omniscan (gadodiamide) IV MEDICAL HISTORY : Meningitis. SURGICAL HISTORY : Thyroidectomy. ENCOUNTER: Subsequent ACUITY: 4-6 days PAIN SCORE: 4/10 LOCATION: neck. TECHNIQUE: Multiplanar, multisequence MRI examination of the cervical spine was performed. FINDINGS: VERTEBRAE: Normal vertebral body height. Degenerative type bone marrow signal changes at C5-6 and C6-7. ALIGNMENT: Mild cervical kyphosis diffusely. CORD: Spinal cord signal within normal limits. POST FOSSA: The cerebellar tonsils are normal in position. POST-CONTRAST: No abnormal areas of enhancement are seen. C2-C3: The thecal sac has a normal configuration. There is no evidence of disc herniation or spinal canal stenosis. The neural foramina are patent bilaterally. C3-C4: Mild left-sided facet arthrosis. No evidence of focal disc protrusion. Central canal normal diameter. Neural foraminal diameters within normal limits. C4-C5: Mild broad-based disc osteophyte complex. No evidence of focal disc protrusion. Central canal normal diameter. Neural foraminal diameters within normal limits. C5-C6: Broad-based disc osteophyte complex resulting in effacement of CSF anteriorly and posteriorly. No carrington dence of spinal cord deformity. Moderate right neural foraminal narrowing. C6-C7: Broad-based disc osteophyte complex resulting in effacement of CSF anteriorly and posteriorly. No carrington dence spinal cord deformity. Mild left neural foraminal narrowing. C7-T1: The thecal sac has a normal configuration. There is no evidence of disc herniation or spinal canal s tenosis. The neural foramina are patent bilaterally. CONCLUSION: Multilevel degenerative findings. No abnormal enhancement on the postcontrast images. No evidence of abscess or osteomyelitis. Hiram Reed MD on January 28, 2017 at 14:03 Board Certified Radiologist. This report was verified electronically.
--- NOTE | 2017-01-28 14:12 | RADRPT ---
EXAM DATE/TIME: 01/28/2017 11:15 [facility] COMPARISON: No previous studies available for comparison. INDICATIONS : Meningitis. Fever. CONTRAST: 15 cc Omniscan (gadodiamide) IV MEDICAL HISTORY : Meningitis. SURGICAL HISTORY : Thyroidectomy. ENCOUNTER: Subsequent ACUITY: 4-6 days PAIN SCORE: 4/10 LOCATION: back. TECHNIQUE: Multiplanar multisequence MRI of the lumbar spine was performed with and without contrast. FINDINGS: The most caudal appearing lumbar vertebra is numbered as L5. VERTEBRAE: Bilateral pars interarticularis defects at L5. Reactive bony changes at L5-S1. Grade 1 anterolisthesi s L5 on S1. CONUS: Normal level and configuration. There is apparent clumping of nerve roots on the right from the level of L1-2 to L3-4. Lipomatous change of the filum terminale. POST CONTRAST: No abnormal areas of contrast enhancement are seen. T12-L1: The thecal sac has a normal diameter. No evidence of disc bulge or protrusion. The neural foramina are patent bilaterally. L1-L2: The thecal sac has a normal diameter. No evidence of disc bulge or protrusion. The neural foramina are patent bilaterally. L2-L3: The thecal sac has a normal diameter. No evidence of disc bulge or protrusion. The neural foramina are patent bilaterally. L3-L4: The thecal sac has a normal diameter. No evidence of disc bulge or protrusion. The neural foramina are patent bilaterally. L4-L5: Broad-based disc bulge and bilateral facet arthrosis. Central canal diameter within normal limits. Mi ld left neural foraminal narrowing. L5-S1: The thecal sac has a normal diameter. No evidence of disc bulge or protrusion. Moderate bilateral ne ural foraminal narrowing. CONCLUSION: 1. 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 2. No abnormal enhancement. No evidence of abscess or osteomyelitis. 3. Lipomatous change of the filum terminale. 4. Central canal diameter within normal limits at all levels. Hiram Reed MD on January 28, 2017 at 14:06 Board Certified Radiologist. This report was verified electronically.
--- NOTE | 2017-01-28 14:25 | HHI.FPPN ---
Subjective Subjective Patient seen and examined with the resident team. Case reviewed and discussed Please refer to resident H&P for further details regarding HPI, ROS, PMH, SurgHx , FH and SocHx In summary, patient is a 51yoF presenting with concern for meningitis. 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 She presented with 4 days of fever, neck stiffness similar to her prior episodes. Patient underwent LP in the ED and was started empirically on antibiotics for suspected meningitis. Patient is seen this am, reportedly feeling significantly improved from admission. Pain controlled on current regimen. Tm 102.2 overnight. [facility] Objective Objective Laboratory Tests - Abnormals Test 01/27/17 14:20 01/27/17 21:26 01/28/17 02:14 CSF Gross Blood (Tube 1) 4+ CSF Gross Blood (Tube 2) 4+ CSF WBC (Tube 2) 8000 /MM3 CSF RBC (Tube 2) 419914 /MM3 CSF Gross Blood (Tube 3) 4+ CSF Gross Blood (Tube 4) 4+ CSF Total Protein 131.8 MG/DL Neutrophils (%) (Auto) 87.3 % Lymphocytes (%) (Auto) 5.5 % Lymphocytes # (Auto) 0.5 TH/MM3 Random Glucose 169 MG/DL Albumin 2.8 GM/DL Calcium Level 7.9 MG/DL Sodium Level 135 MEQ/L Potassium Level 3.3 MEQ/L Estimat Glomerular Filtration Rate 77 ML/MIN Vital Signs 01/27/17 01/27/17 01/27/17 01/27/17 16:00 18:45 20:00 20:00 Temp 99.7 Pulse 103 102 101 Resp 18 20 18 B/P (MAP) 136/81 (99) 135/69 (91) 128/79 (95) Pulse Ox 97 97 98 O2 Delivery Room Air 01/27/17 01/28/17 01/28/17 01/28/17 23:54 00:00 04:00 04:00 Temp 102.2 97.2 Pulse 100 74 Resp 18 16 B/P (MAP) 107/65 (79) 108/58 (75) Pulse Ox 96 98 O2 Delivery Room Air Room Air 01/28/17 01/28/17 08:00 09:22 Temp 97.4 Pulse 73 Resp 20 B/P (MAP) 112/68 (83) Pulse Ox 95 O2 Delivery Room Air Physical exam GENERAL: wdwn female, sitting up in bed SKIN: Warm and dry. There is a scattered maculopapular rash over trunk, LE bilaterally including plantar surfaces of feet, UE bilaterally including the palms with scattered tender papules HEAD: Normocephalic. AT EYES: No scleral icterus. No injection or drainage. NECK: There is some mild neck pain with extension, overall, supple, significantly improved from report of yesterday. No nuchal rigidity. trachea midline. No JVD or lymphadenopathy. CARDIOVASCULAR: Regular rate and rhythm without murmurs, gallops, or rubs. RESPIRATORY: Breath sounds equal and clear bilaterally. No accessory muscle use. GASTROINTESTINAL: Abdomen soft, non-tender, nondistended. Normal active BS. No rebound. MUSCULOSKELETAL: No cyanosis, or edema. No calf tenderness. BACK: Nontender without obvious deformity. No CVA tenderness. Assessment Assessment 51yoF admitted with: Febrile illness, suspect viral meningitis, r/o discitis Hx Mollarets meningitis Fever Tachycardia Elevated CRP Severe hypokalemia Anxiety Buldging disk, back pain Chronic headache PLAN PLAN Patient started on empiric antibiotics, decadron CSF culture ID consultation, appreciate recs MRI c spine, to r/o discitis Acyclovir for aseptic meningitis Herpes PCR RPR Blood cultures Resume home meds as appropriate Pain control Patient seen and examined. Case reviewed and discussed Agree with plan of care as discussed with me and documented in the resident note. Vera Stallworth MD Jan 28, 2017 14:24
[2017-01-28] MEDS: cefTRIAXone INJ 2,000 MG in SODIUM CHLORIDE 0.9% INJ 100 ML IV SCH ×2 (14:55→23:49)
[2017-01-28 16:00] VITALS: BP 112/68; PULSE 80; RESP 20; TEMP 97.6; O2SAT 96
[2017-01-28 20:00] VITALS: BP 105/77; PULSE 81; RESP 18; TEMP 97.4; O2SAT 94
[2017-01-28] MEDS: ALPRAZolam 0.5 MG TAB PO PRN (21:53)
[2017-01-28] MEDS: POTASSIUM CHLORIDE 10 MEQ CONTROLLED RELEASE TAB PO SCH (21:53)
[2017-01-29] VITALS: BP 112/72; PULSE 77; RESP 18; TEMP 97.2; O2SAT 97
[2017-01-29] MEDS: SODIUM CHLOR 0.9% 1000 ML INJ 1,000 ML IV SCH ×3 (02:12→11:31)
[2017-01-29] MEDS: ACETAMINOPHEN/HYDROcodone 325 MG/5 MG TAB PO PRN ×3 (02:13→10:13)
[2017-01-29 04:00] VITALS: BP 118/66; PULSE 65; RESP 16; TEMP 97.1; O2SAT 96
[2017-01-29] MEDS: ALPRAZolam 0.5 MG TAB PO PRN (06:09)
[2017-01-29] MEDS: DEXAMETHASONE SOD PHOS 20 MG/5 ML VIAL IV PUSH SCH ×2 (06:09→11:30)
[2017-01-29] MEDS ORDERED: PHARMACY ORDERED LAB ONE (07:45)
[2017-01-29 07:47] LABS: HEMATOCRIT 37.4 % (35.0-46.0); MEAN CELL VOLUME 90.1 FL (80.0-100.0); MEAN CORPUSCULAR HGB CONC 33.3 % (32.0-36.0); PLATELET COUNT 244 TH/MM3 (150-450); RED BLOOD COUNT 4.15 MIL/MM3 (4.00-5.30); RED CELL DISTRIBUTION WIDTH 14.8 % (11.6-17.2); REVIEW FLAG FINAL; WHITE BLOOD COUNT 13.2 TH/MM3 (4.0-11.0)
[2017-01-29] MEDS: SODIUM CHLORIDE 0.9% FLUSH 10 ML FLUSH IV FLUSH SCH (07:56)
[2017-01-29 08:03] VITALS: BP 122/72; PULSE 75; RESP 16; TEMP 97.5; O2SAT 96
[2017-01-29] MEDS: POTASSIUM CHLORIDE 10 MEQ CONTROLLED RELEASE TAB PO SCH (08:53)
[2017-01-29] MEDS: DOCUSATE SODIUM 50 MG/SENNA 8.6 MG TAB PO SCH (08:53)
[2017-01-29 09:31] LABS: HSV 1,PCR Negative (Negative)
[2017-01-29] MEDS: cefTRIAXone INJ 2,000 MG in SODIUM CHLORIDE 0.9% INJ 100 ML IV SCH (11:30)
--- NOTE | 2017-01-29 11:39 | HHI.FPPN ---
Subjective Remarks Patient was seen and examined this morning. She states she feels 80% better from her baseline. She requests update about her MRIs. She is up moving around and felt a little dizzy yesterday but does not feel dizzy today. She requests discontinuation of the IV fluids if possible. She believes the steroids have been the cause for her improvement in pain. She reported very little pain at baseline but does note her left hip and buttock are still sore. She does note her bowel movements have become a little looser since starting antibiotics. Review systems otherwise reviewed and negative. MRI reports were discussed in detail with patient including degenerative changes and there is levels of her spine and left gluteal strain. We also discussed in detail that she has a left ovarian cyst and exophytic fibroid. (Fiona Jaquez MD R2) Objective Vitals Vital Signs Date Time Temp Pulse Resp B/P (MAP) Pulse Ox O2 Delivery O2 Flow Rate FiO2 01/29/17 08:03 97.5 75 16 122/72 (89) 96 01/29/17 04:00 97.1 65 16 118/66 (83) 96 01/29/17 00:00 97.2 77 18 112/72 (85) 97 01/28/17 20:00 97.4 81 18 105/77 (86) 94 01/28/17 19:00 94 Room Air 01/28/17 16:00 97.6 80 20 112/68 (83) 96 01/28/17 12:00 97.6 89 20 114/76 (89) 93 I/O 01/28/17 01/28/17 01/28/17 01/29/17 01/29/17 01/29/17 07:00 15:00 23:00 07:00 15:00 23:00 Intake Total 600 ml 2653 ml 3780 ml Balance 600 ml 2653 ml 3780 ml Intake Oral 600 ml 1200 ml 480 ml IV Total 1453 ml 3300 ml # Voids 4 1 3 # Bowel Movements 0 0 0 (Fiona Jaquez MD R2) Result Diagram: 01/29/17 0710 01/29/17 0710 Imaging Last Impressions Thoracic Spine MRI 01/28/17 0000 Signed Impressions: Service Date/Time: January 11:15 - CONCLUSION: No acute findings in the thoracic spine. Hiram Reed MD Lumbar Spine MRI 01/28/17 0000 Signed Impressions: Service Date/Time: January 11:15 - CONCLUSION: 1. 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 2. No abnormal enhancement. No evidence of abscess or osteomyelitis. 3. Lipomatous change of the filum terminale. 4. Central canal diameter within normal limits at all levels. Hiram Reed MD Hip MRI 01/28/17 0000 Signed Impressions: Service Date/Time: January 11:15 - CONCLUSION: 1. Mild peritendinitis/strain of the distal gluteus medius on the left. 2. Small left hip joint effusion. 3. Left-sided uterine fibroid and left-sided ovarian cyst. Hiram Reed MD Cervical Spine MRI 01/28/17 0000 Signed Impressions: Service Date/Time: January 11:15 - CONCLUSION: Multilevel degenerative findings. No abnormal enhancement on the postcontrast images. No evidence of abscess or osteomyelitis. Hiram Reed MD Chest X-Ray 01/27/17 1143 Signed Impressions: Service Date/Time: Friday, January 27, 2017 12:26 - CONCLUSION: 1. No acute cardiopulmonary findings. Gael Guevara MD Objective Remarks GENERAL: Patient is a well-nourished female in no apparent distress. SKIN: Warm and dry. Patient does have a diffuse maculopapular rash on the arms, trunk, lower extremities, and palms. It has improved significantly since yesterday. HEAD: Atraumatic. Normocephalic. EYES: Pupils equal and round, EOMI. No scleral icterus. No injection or drainage. ENT: No nasal bleeding or discharge. Mucous membranes pink and moist. NECK: Trachea midline. No JVD. She has full range of motion today. CARDIOVASCULAR: Regular rate and rhythm. No murmurs auscultated today. RESPIRATORY: No accessory muscle use. Clear to auscultation without wheezes or rhonchi.. Breath sounds equal bilaterally. GASTROINTESTINAL: Abdomen soft, non-tender, nondistended. Hepatic and splenic margins not palpable. MUSCULOSKELETAL: Extremities without clubbing, cyanosis, or edema. No obvious deformities. NEUROLOGICAL: Awake and alert. Cranial nerves II through XII intact. Motor grossly within normal limits. 5/5 muscle strength in the arms and legs. Normal speech. PSYCHIATRIC: Appropriate mood and affect; insight and judgment normal. Medications and IVs Inpatient Medications Acetaminophen (Tylenol) 650 mg Q6H PRN PO PAIN SCALE 1 TO 2; Start 01/27/17 at 18:45 Acetaminophen/ Hydrocodone Bitart ([place] 5-325 Mg) 2 tab Q4H PRN PO PAIN GREATER THAN 6 Last administered on 01/29/17 10:13; Start 01/28/17 at 09:30 Acyclovir Sodium 700 mg/Sodium Chloride 100 ml @ 100 mls/hr Q8H IV Last administered on 01/28/17 13:12; Start 01/28/17 at 12:00; Stop 01/28/17 at 14:33 ; Status DC Alprazolam (Xanax) 0.5 mg Q8H PRN PO ANXIETY Last administered on 01/29/17 06: 09; Start 01/28/17 at 19:30 Bisacodyl (Dulcolax Supp) 10 mg DAILY PRN RECTAL SEVERE CONSITIPATION; Start at 17:45 Ceftriaxone Sodium 2000 mg/ Sodium Chloride 100 ml @ 200 mls/hr Q12H IV Last administered on 01/29/17 11:30; Start 01/28/17 at 00:00; Stop 01/29/17 at 12:49 ; Status DC Dexamethasone Sodium Phosphate (Decadron Inj) 11.5 mg Q6H IV PUSH Last administered on 01/29/17 11:30; Start 01/27/17 at 23:45; Stop 01/29/17 at 12:50 ; Status DC Lactulose (Lactulose Liq) 30 ml DAILY PRN PO SEVERE CONSITIPATION; Start at 17:45 Magnesium Hydroxide (Milk Of Magnesia Liq) 30 ml Q12H PRN PO MILD - MODERATE CONSTIPATION; Start 01/27/17 at 17:45 Miscellaneous Information SPECIFIC LAB TO BE ... ONCE ONCE .XX ; Start 01/29 at 07:45; Stop 01/29/17 at 07:46; Status DC Morphine Sulfate (Morphine Inj) 2 mg Q3H PRN IV PUSH BREAKTHROUGH PAIN; Start 01/28/17 at 09:30 Naloxone HCl (Narcan Inj) 0.4 mg UNSCH PRN IV PUSH SEE LABEL COMMENTS; Start at 18:45 Ondansetron HCl (Zofran Inj) 4 mg Q6H PRN IVP NAUSEA OR VOMITING; Start at 17:45 Pharmacy Profile Note 0 ml @ 0 mls/hr UNSCH OTHER ; Start 01/27/17 at 17:45; Stop 01/28/17 at 16:43; Status DC Potassium Chloride (KCl) 40 meq Q12HR PO Last administered on 01/29/17 08:53; Start 01/28/17 at 21:00; Stop 01/29/17 at 11:36; Status DC Propofol (Diprivan 200 Mg/20 ml Inj) 200 mg ONCE ONCE IV Last administered on 01/27/17 14:54; Start 01/27/17 at 13:45; Stop 01/27/17 at 13:46; Status DC Senna/Docusate Sodium (Radha-Colace) 1 tab BID PO ; Start 01/27/17 at 21:00 Sennosides (Senokot) 17.2 mg Q12H PRN PO MODERATE - SEVERE CONSTIPATION; Start 01/27/17 at 17:45 Sodium Chloride (NS Flush) 2 ml BID IV FLUSH Last administered on 01/29/17 07: 56; Start 01/27/17 at 21:00 Vancomycin HCl 1000 mg/Sodium Chloride 250 ml @ 250 mls/hr Q12H IV Last administered on 01/28/17 08:57; Start 01/27/17 at 20:00; Stop 01/28/17 at 16:43 ; Status DC (Fiona Jaquez MD R2) Urinary Catheter: No (Fiona Jaquez MD R2) Vascular Central Line Catheter: No (Fiona Jaquez MD R2) A/P Assessment and Plan 51-year-old female with history of Mollaret meningitis, 7 past episodes meningitis, who presented with meningeal symptoms. Lumbar puncture performed in ED elevated WBC at 8000, however highly traumatic tap with almost 1,000,000 RBC present. She was also noted to have a diffuse rash on admission, improved. Since admission, patient's symptoms have resolved and workup has revealed no definitive evidence for meningitis. Patient able for discharge today with close follow-up. Discharge Planning Discharge today (Fiona Jaquez MD R2) Attending Attestation Patient seen and examined. Case reviewed and discussed Agree with plan of care as discussed with me and documented in the resident note. (Vera Stallworth MD) Problem List: (1) Meningitis ICD Codes: G03.9 - Meningitis, unspecified Status: Acute Plan: History of Mollarets meningitis. Meningeal signs present. 8000 WBCs in traumatic tap. Possible bacterial versus viral meningitis on admission, with workup negative. * Vancomycin and Rocephin (01/27-01/29) * CSF HSV 1/2 PCR negative * Blood culture negative * CRP markedly elevated, without obvious etiology * MRIs of the spine and hip significant for degenerative changes, strain of left gluteal muscle, otherwise negative (2) Rash ICD Codes: R21 - Rash and other nonspecific skin eruption Status: Acute Plan: Nontender and non-pruritic papular rash extending over body including palms. * RPR negative, GC/chlamydia negative * Unknown definitive cause, suspect viral exanthem (3) Hypokalemia ICD Codes: E87.6 - Hypokalemia Status: Resolved Plan: Potassium 2.8 in ED on day of admission * 40 mEq given in the ED, given 40mEq BID until normalization (4) FEN Plan: Fluids * By mouth as tolerated Electrolytes * Hypokalemia resolved, given potassium supplementation * Monitor and correct as needed Nutrition * Regular diet Prophylaxis * Mechanical DVT prophylaxis * Chemical prophylaxis currently contraindicated due to multiple recent LP attempts (Fiona Jaquez MD R2) Fiona Jaquez MD R2 Jan 29, 2017 11:39 Vera Stallworth MD Jan 30, 2017 14:32
[2017-01-29 12:03] VITALS: BP 112/71; PULSE 86; RESP 16; TEMP 97.9; O2SAT 96
--- NOTE | 2017-01-29 12:57 | ECHRPT ---
Indication: endocarditis CONCLUSIONS The left ventricular systolic function is normal with an estimated ejection fraction in the range of 60-65%. Normal left ventricular size. No definite wall motion abnormalities. Structurally normal mitral valve. [id number] mitral valve regurgitation. Structurally normal tricuspid valve. There is trace tricuspid valve regurgitation. The estimated pulmonary arterial pressure is 32 mmHg. BP: / HR: Rhythm: MEASUREMENTS (Male / Female) Normal Values Technical Quality:Fair 2D ECHO LV Diastolic Diameter PLAX 4.1 cm 4.2 - 5.9 / 3.9 - 5.3 cm LV Systolic Diameter PLAX 2.9 cm IVS Diastolic Thickness 1.2 cm 0.6 - 1.0 / 0.6 - 0.9 cm LVPW Diastolic Thickness 0.8 cm 0.6 - 1.0 / 0.6 - 0.9 cm LV Relative Wall Thickness 0.5 RV Internal Dim ED PLAX 2.7 cm M-MODE Aortic Root Diameter MM 2.2 cm LA Systolic Diameter MM 3.3 cm LA Ao Ratio MM 1.5 AV Cusp Separation MM 1.8 cm DOPPLER Mitral E Point Velocity 65.6 cm/s Mitral A Point Velocity 57.8 cm/s Mitral E to A Ratio 1.1 LV E' Lateral Velocity 11.6 cm/s Mitral E to LV E' Lateral Ratio 5.7 LV E' Septal Velocity 9.2 cm/s Mitral E to LV E' Septal Ratio 7.2 TR Peak Velocity 238.0 cm/s TR Peak Gradient 22.7 mmHg Right Atrial Pressure 10.0 mmHg Pulmonary Artery Systolic Pressu 32.7 mmHg Right Ventricular Systolic Press 32.7 mmHg FINDINGS LEFT VENTRICLE The left ventricular systolic function is normal with an estimated ejection fraction in the range of 60-65%. Normal left ventricular size. No definite wall motion abnormalities. RIGHT VENTRICLE Normal right ventricular size and systolic function. LEFT ATRIUM The left atrial size is normal. RIGHT ATRIUM The right atrial size is normal. ATRIAL SEPTUM Normal atrial septal thickness without atrial level shunting by limited color doppler interrogation. AORTA The aortic root and proximal ascending aorta are normal in size on limited imaging. MITRAL VALVE Structurally normal mitral valve. [id number] mitral valve regurgitation. AORTIC VALVE Trileaflet aortic valve. No aortic valve regurgitation. No aortic valve stenosis. TRICUSPID VALVE Structurally normal tricuspid valve. There is trace tricuspid valve regurgitation. The estimated pulmonary arterial pressure is 32 mmHg. PULMONARY VALVE No pulmonary valve regurgitation or stenosis. VESSELS The inferior vena cava is normal in size. PERICARDIUM No pericardial effusion. Usama Hart MD (Electronically Signed) Final Date:29 January 2017 12:56
[2017-01-29] MEDS ORDERED: HYDR-3516 PO (12:58)
--- NOTE | 2017-01-29 13:00 | HHI.DCPOC ---
Discharge Care Plan Diagnosis: (1) Fever (2) Headache (3) Meningitis Goals to Promote Your Health * To prevent worsening of your condition and complications * To maintain your health at the optimal level Directions to Meet Your Goals Take your medications as prescribed Follow your dietary instruction Follow activity as directed Keep your appointments as scheduled Take your immunizations and boosters as scheduled If your symptoms worsen call your PCP, if no PCP go to Urgent Care Center or Emergency Room Smoking is Dangerous to Your Health. Avoid second hand smoke Call the 24-hour hour crisis hotline for domestic abuse at Fiona Jaquez MD R2 Jan 29, 2017 12:59
[2017-01-29 16:03] VITALS: BP 120/67; PULSE 83; RESP 16; TEMP 97.9; O2SAT 95
[2017-01-30 23:51] LABS: HAEMOPHILUS FLU AG TYPE B Not Detected (Not Detected); N MENINGITIDIS GRP B/ECOLI K1 Not Detected (Not Detected); N MENINGITIDIS GRP C/W135 Not Detected (Not Detected); N.MENINGITIDIS GRP A/Y Not Detected (Not Detected); STREPTOCOCCUS PNEUMONIAE Not Detected (Not Detected)
--- NOTE | 2017-01-31 11:25 | HHI.DS ---
Discharge Summary Admission Date Jan 27, 2017 at 16:24 Discharge Date: Jan 29, 2017 Admitting Diagnosis meningitis (1) Meningitis Diagnosis: Principal Plan: Principal diagnoses at admission was meningitis. However, workup revealed low likelihood of meningitis. 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 Meningeal signs present on admission. 8000 WBCs in traumatic tap. * Vancomycin and Rocephin (01/27-01/29). * CSF HSV 1/2 PCR negative * Blood culture negative * CRP markedly elevated, without obvious etiology, and patient is status post 2 days of IV Decadron, discontinued at time of discharge * MRIs of the spine and hip significant for degenerative changes, strain of left gluteal muscle, otherwise negative ICD Codes: G03.9 - Meningitis, unspecified Status: Acute (2) Rash Diagnosis: Secondary Plan: Nontender and non-pruritic papular rash extending over body including palms. * RPR negative, GC/chlamydia negative * Unknown definitive cause, suspect viral exanthem, patient to follow up closely PCP to monitor resolution ICD Codes: R21 - Rash and other nonspecific skin eruption Status: Acute (3) Hypokalemia Diagnosis: Secondary Plan: Potassium 2.8 in ED on day of admission. Hypokalemia resolved * 40 mEq given in the ED, given 40mEq BID until normalization ICD Codes: E87.6 - Hypokalemia Status: Resolved (4) FEN Diagnosis: Secondary Plan: Fluids * By mouth as tolerated Electrolytes * Hypokalemia resolved, given potassium supplementation * Monitor and correct as needed Nutrition * Regular diet Prophylaxis * Mechanical DVT prophylaxis * Chemical prophylaxis currently contraindicated due to multiple recent LP attempts Consultants Infectious disease Procedures Lumbar puncture 5 on day of admission 01/27 Brief History 51-year-old female with past history of chronic headache, anxiety, chronic lower back pain, bulging disc, mollarets meningitis presented to the ED for "I think at meningitis." Patient states that since 4 days prior to admission she's had intermittent fevers recorded at 101.0 the first day, neck pain, chills, pain in her left hip. Currently endorses all of these symptoms which have not gotten better. The neck pain radiates into her shoulders down her back. Notes she is currently confused and "cannot add things up" right now. States she is having difficulty turning her head due to exquisite pain. She stated that she has had 7 cases of meningitis in the past, this is similar to but not exactly like the past cases she's had due to lack of headache. No headache, change in vision, photophobia, change in gait, change in balance, nausea, vomiting. She also notes a rash on her palms, abdomen, legs which has been present for a week or more. The rash is not itchy and described as red bumps, only 1 bump is painful which is located on the interphalangeal webbing between her thumb and pointer finger. No report of foot drop. CBC/BMP: 01/29/17 0710 01/29/17 0710 Significant Findings Laboratory Tests Test 01/28/17 14:28 01/29/17 07:10 Levetiracetam (Keppra) Level <2.0 mcg/mL (12.0 - 46.0) White Blood Count 13.2 TH/MM3 (4.0-11.0) Random Glucose 149 MG/DL (74-106) Calcium Level 8.4 MG/DL (8.5-10.1) Chloride Level 109 MEQ/L (98-107) Imaging Last Impressions Thoracic Spine MRI 01/28/17 0000 Signed Impressions: Service Date/Time: January 11:15 - CONCLUSION: No acute findings in the thoracic spine. Hiram Reed MD Lumbar Spine MRI 01/28/17 0000 Signed Impressions: Service Date/Time: January 11:15 - CONCLUSION: 1. 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 2. No abnormal enhancement. No evidence of abscess or osteomyelitis. 3. Lipomatous change of the filum terminale. 4. Central canal diameter within normal limits at all levels. Hiram Reed MD Hip MRI 01/28/17 0000 Signed Impressions: Service Date/Time: January 11:15 - CONCLUSION: 1. Mild peritendinitis/strain of the distal gluteus medius on the left. 2. Small left hip joint effusion. 3. Left-sided uterine fibroid and left-sided ovarian cyst. Hiram Reed MD Cervical Spine MRI 01/28/17 0000 Signed Impressions: Service Date/Time: January 11:15 - CONCLUSION: Multilevel degenerative findings. No abnormal enhancement on the postcontrast images. No evidence of abscess or osteomyelitis. Hiram Reed MD Chest X-Ray 01/27/17 1143 Signed Impressions: Service Date/Time: Friday, January 27, 2017 12:26 - CONCLUSION: 1. No acute cardiopulmonary findings. Gael Guevara MD PE at Discharge GENERAL: Patient is a well-nourished female in no apparent distress. SKIN: Warm and dry. Patient does have a diffuse maculopapular rash on the arms, trunk, lower extremities, and palms. It has improved significantly since yesterday. HEAD: Atraumatic. Normocephalic. EYES: Pupils equal and round, EOMI. No scleral icterus. No injection or drainage. ENT: No nasal bleeding or discharge. Mucous membranes pink and moist. NECK: Trachea midline. No JVD. She has full range of motion today. CARDIOVASCULAR: Regular rate and rhythm. No murmurs auscultated today. RESPIRATORY: No accessory muscle use. Clear to auscultation without wheezes or rhonchi.. Breath sounds equal bilaterally. GASTROINTESTINAL: Abdomen soft, non-tender, nondistended. Hepatic and splenic margins not palpable. MUSCULOSKELETAL: Extremities without clubbing, cyanosis, or edema. No obvious deformities. NEUROLOGICAL: Awake and alert. Cranial nerves II through XII intact. Motor grossly within normal limits. 5/5 muscle strength in the arms and legs. Normal speech. PSYCHIATRIC: Appropriate mood and affect; insight and judgment normal. Hospital Course 51-year-old female with history of Moll[place] meningitis who presented to the ED with meningeal signs including significant neck pain with reported subjective fever at home. ED evaluation included LP 5 in the ED which showed evidence of traumatic tap with large amount of WBCs, large amount of RBCs increasing difficulty of definitive diagnosis. 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 She was admitted with concern for acute meningitis and started on antibiotic treatment for bacterial meningitis at time of admission, and infectious disease was consulted. There was low suspicion for meningitis per evaluation by Dr. Banda. IV site dexamethasone was initiated on day 1 of stay, discontinued at time of discharge. Patient does report total body pain and was noted to have a diffuse rash including palms and soles. RPR was negative, GC and chlamydia was negative, HIV was negative. All CSF studies were consistent with infection. MRI of spine and left hip were performed and notable for chronic changes and gluteal muscle strain. MRI results were reviewed in detail with patient. Given significant symptomatic improvement after pain medication optimization and no signs of acute infection aside from 1 elevated temperature on 01/27/17, patient was discharged home with optimize pain medication. She is to follow-up with her PCP. Pt Condition on Discharge: Stable Discharge Disposition: Discharge Home Discharge Instructions DIET: Follow Instructions for: As Tolerated, No Restrictions Activities you can perform: Regular-No Restrictions Follow up Referrals: PCP Follow-up - 1 Week New Medications: Hydrocodone-Acetaminophen (Hydrocodone-Acetaminophen) 5-325 mg Tab 1 TAB PO Q4-6H PRN for PAIN, #10 TAB Continued Medications: Alprazolam (Xanax) 0.5 Mg Tab 0.5 MG PO Q8H PRN for ANXIETY, TAB 0 Refills Butalbit/Acetamin/Caff/Codeine (Rpmybo-Lcjv-Pmvwhihfaoj-Codein) 1 Each Capsule Discontinued Medications: Hydrocodone-Acetaminophen (Hydrocodone-Acetaminophen) 5-325 mg Tab 1 TAB PO Q6H PRN for PAIN, TAB 0 Refills Tramadol (Tramadol) 50 Mg Tab 50 MG PO Q6H PRN for PAIN, TAB 0 Refills Fiona Jaquez MD R2 Jan 31, 2017 11:25
== END 2017-01-29 18:02 | disposition home or self-care (01) | DRG 99 ==
LOC: NEPC 11:09 → NEDA 16:24 → N04B 18:56
PROVIDERS: ADMIT Family Medicine; ATTEND Family Medicine
PROC: 009U3ZX Drainage of Spinal Canal, Percutaneous Approach, Diagnostic (ICD-10-PCS; principal; 2017-01-27)
DX: G03.9 Meningitis, unspecified (principal); E87.6 Hypokalemia; R21 Rash and other nonspecific skin eruption
CPT/HCPCS: 62270; 71010; 72156; 72157; 72158; 73723; 80048; 80053; 80177; 81001; 82945; 83605; 83735; 84157; 84702; 85025; 85027; 85652; 86140; 86403; 86592; 87040; 87070; 87086; 87205; 87389; 87491; 87529; 87591; 87804; 89051; 93005; 93306; 96365; 99152; A9579; J0133; J0696; J1100; J2270; J3370; J7030; J7050